=== PATIENT | male | born 1995 | race Two or more races ===

== ENCOUNTER 2018-03-12 08:53 | Day surgery (SDC) | payer OTHER ==
[~2018-03-12 08:53] MED LIST: CEFAZOLIN 1 GM INJ
[2018-03-12 09:58] LABS: ADD MAN DIFF? NO
[2018-03-12 10:00] LABS: WHITE BLOOD COUNT 7.3 10^3/ul (4.8-10.8)
[2018-03-12 10:00] LABS: BASOPHILS % 0.3 % (0.0-2.0); EOSINOPHILS # 0.1 10^3/ul (0.0-0.5); EOSINOPHILS % 1.7 % (0.0-7.0); HEMATOCRIT 40.8 % (42.0-52.0); HEMOGLOBIN 14.5 g/dl (14.0-18.0); LYMPHOCYTES # 2.1 10^3/ul (0.8-2.9); LYMPHOCYTES % 28.7 % (18.0-55.0); MEAN CORPUSCULAR HEMOGLOBIN 30.2 pg (29.0-33.0); MEAN CORPUSCULAR HGB CONC 35.5 g/dl (32.0-37.0); MEAN PLATELET VOLUME 10.5 fl (7.4-10.4); MONOCYTE # 0.9 10^3/ul (0.3-0.9); MONOCYTES % 12.4 % (0.0-13.0); NEUTROPHIL # 4.1 10^3/ul (1.6-7.5); NEUTROPHILS % 56.5 % (30.0-74.0); PLATELET COUNT 182 10^3/UL (140-415); RED CELL DISTRIBUTION WIDTH 13.8 % (11.5-14.5)
[2018-03-12 10:20] LABS: ALANINE AMINOTRANSFERASE 65 IU/L (13-69); ALBUMIN 4.4 g/dl (3.3-4.9); ALBUMIN/GLOBULIN RATIO 1.51; ALKALINE PHOSPHATASE 61 IU/L (42-121); ANION GAP 21 (8-16); ASPARTATE AMINO TRANSFERASE 34 IU/L (15-46); BILIRUBIN,INDIRECT 0.8 mg/dl (0-1.1); BILIRUBIN,TOTAL 0.8 mg/dl (0.2-1.3); CARBON DIOXIDE 28 mmol/L (21-31); CHLORIDE 102 mmol/L (97-110); GLUCOSE 109 mg/dl (70-220); TOTAL PROTEIN 7.3 g/dl (6.1-8.1)
[2018-03-12 10:28] LABS: BLOOD UREA NITROGEN 9 mg/dl (7-20); CALCIUM 9.7 mg/dl (8.4-10.2); CREATININE 0.97 mg/dl (0.61-1.24); POTASSIUM 3.7 mmol/L (3.5-5.1); SODIUM 147 mmol/L (135-144)
[2018-03-12 10:41] LABS: INR 0.97
[2018-03-12 10:42] LABS: PARTIAL THROMBOPLASTIN TIME 28.7 Sec (25.0-35.0)
[2018-03-12] MEDS ORDERED: SOD CHLORIDE 0.9% 1,000 ML IV (11:00)
[2018-03-12] MEDS ORDERED: CEFAZOLIN 2 GM/50 ML (PMX) 50 ML IVPB (11:00)
[2018-03-12] MEDS ORDERED: PROPOFOL 20 ML (11:43)
[2018-03-12] MEDS ORDERED: LIDOCAINE 2% (SDV) 5 ML INJ (11:43)
[2018-03-12] MEDS ORDERED: GLYCOPYRROLATE 0.4 MG INJ (11:43)
[2018-03-12] MEDS ORDERED: NEOSTIGMINE 3 MG/3 ML SYRINGE (11:43)
[2018-03-12] MEDS ORDERED: FENTAnyl 50 MCG/ML VIAL (11:43)
[2018-03-12] MEDS ORDERED: ROCURONIUM 50 MG INJ (11:43)
[2018-03-12] MEDS ORDERED: DEXAMETHASONE 4 MG/ML 1 ML INJ (11:44)
[2018-03-12] MEDS ORDERED: MIDAZOLAM 1 MG/ML 2 ML INJ (11:44)
[2018-03-12] MEDS ORDERED: SUCCINYLCHOLINE CHLORIDE 100 MG/5 ML SYG IV (11:45)
[2018-03-12] MEDS ORDERED: ONDANSETRON 4 MG INJ (11:45)
[2018-03-12] MEDS: BUPIVACAINE 0.25%/EPI (SDV) 30 ML INJ (13:36)
[2018-03-12] MEDS ORDERED: BACITRACIN 0.9 GM OINT (13:39)
[2018-03-12] MEDS ORDERED: ONDANSETRON 4 MG INJ IV ×2 (14:00→14:30)
[2018-03-12] MEDS ORDERED: IBUPROFEN 600 MG TAB PO (14:00)
[2018-03-12] MEDS ORDERED: HYDROCODONE/APAP (5/325) TAB PO ×2 (14:00)
[2018-03-12] MEDS: morphine 2 MG INJ IV (14:02)
[2018-03-12] MEDS: KETOROLAC 30 MG INJ IV (14:02)
[2018-03-12] MEDS ORDERED: morphine (1 MG/ML) 10ML SYRINGE IV ×3 (14:30)
[2018-03-12] MEDS ORDERED: hydrALAzine 20 MG INJ IV (14:30)
[2018-03-12] MEDS ORDERED: HYDROmorphONE (0.2 MG/ML) 10ML SYG IV ×3 (14:30)
[2018-03-12] MEDS ORDERED: FENTAnyl 50 MCG/ML VIAL IV ×2 (14:30)
[2018-03-12] MEDS ORDERED: EPHEDrine SULFATE 50 MG/5 ML SYG IV (14:30)
[2018-03-12] MEDS ORDERED: MEPERIDINE 25 MG INJ IV (14:30)
[2018-03-12] MEDS ORDERED: ATROPINE 1 MG/10 ML SYRINGE IV (14:30)
[2018-03-12] MEDS ORDERED: LABETALOL HCL 20MG INJ IV (14:30)
[2018-03-12] MEDS ORDERED: MIDAZOLAM 1 MG/ML 2 ML INJ IV (14:30)
[2018-03-12] MEDS ORDERED: OXYCODONE/ACETAMINOPHEN (5/325) TAB PO ×2 (14:30)
[2018-03-12] MEDS ORDERED: DIPHENHYDRAMINE 50 MG INJ IV (14:30)
== END 2018-03-12 16:30 | disposition home or self-care (01) ==
LOC: SDS 08:53
DX: L05.91 Pilonidal cyst without abscess (principal)
CPT/HCPCS: 10081; 80053; 85025; 85610; 85730; 88304